=== PATIENT | male | born 1960 | race Caucasian/White ===

== ENCOUNTER → 2019-09-16 08:10 | Outpatient (BNVA) | payer OTHER, SELFPAY | PROVIDERS: Referring Provider Family Medicine; Visit Provider Podiatrist Foot & Ankle Surgery | DX: M79.672 Pain in left foot (principal); M85.872 Other specified disorders of bone density and structure, left ankle and foot | CPT/HCPCS: 73630 ==

== ENCOUNTER 2021-09-14 10:02 | Outpatient (CLI) | payer OTHER, SELFPAY ==
--- NOTE | 2021-09-13 10:15 | NM_ITS ---
WS: [id number] NUCLEAR MEDICINE 24 HOUR I-123 THYROID UPTAKE INDICATION: Thyroid nodules TECHNIQUE: I-123 24 HOUR THYROID UPTAKE WITH PLANAR IMAGING. I-125 UCI GRIFFIN 123 COMPARISON: None FINDINGS: Symmetric bilateral thyroid uptake. A few patchy areas of uptake most prominent in the RIGH T lower lobe. This can be further evaluated with ultrasound. 24 hour thyroid uptake 10.85% within normal limits at the lower end of the range. NORMAL 24H THRYOID UPTAKE 8-35% NM/NM thyroid uptake multi 12511 IMPRESSION: 1. 24 hour thyroid uptake 10.85% within normal limits at the lower end of the range. 2. Patchy heterogeneous radiotracer uptake with suggestion of a cold nodule RI GHT lower lobe. Recommend ultrasound thyroid in further evaluation
== END 2021-09-14 10:03 | disposition home or self-care (01) ==
PROVIDERS: PCP Family Medicine; Visit Provider Specialist
DX: E04.1 Nontoxic single thyroid nodule (principal)
CPT/HCPCS: 78014; A9516